=== PATIENT | female | born 1945 | race Caucasian/White ===

== ENCOUNTER 2017-11-05 09:49 | Emergency (ER) | payer MEDICARE, BC ==
[2017-11-05 10:50] VITALS: BP 145/83
--- NOTE | 2017-11-05 11:05 | UC ---
Neck Pain HPI - HPI Summary HPI Summary: Patient complains of muscle stiffness on the left side of her neck radiating down toward her mid back. Pain began after sleeping under different pillow much she just a sleeping and woke up with neck pain and the patient is continued on no neuromotor circulatory complaints distally in her upper or lower extremities has tried ibuprofen and heat without relief - History of Current Complaint Chief Complaint: UCGeneralIllness Stated Complaint: STIFF NECK MUSCLE Time Seen by Provider: 11/05/17 10:55 Hx Obtained From: Patient ?: No Onset/Duration Of Injury/Symptoms: Days - 5 Timing: Constant - O Pain Intensity: 10 Pain Scale Used: 0-10 Numeric Location: Diffuse - left side of neck and back is 1 Character: Stiff, Spasmotic Aggravating Factors: Position, Movement Alleviating Factors: Nothing Associated Signs & Symptoms: Positive: Negative - Allergies/Home Medications Allergies/Adverse Reactions: Allergies Allergy/AdvReac Type Severity Reaction Status Date / Time oxycodone [From Percodan] AdvReac Severe Hallucinati Verified 11/05/17 10:51 ons PMH/Surg Hx/FS Hx/Imm Hx Previously Healthy: No Cardiovascular History: Hypertension - D - Surgical History Surgical History: Yes Surgery Procedure, Year, and Place: cataracts 1999, hysterectomy 1969, bladder 2009 - Family History Known Family History: Positive: None - Social History Occupation: Retired Lives: With Family Alcohol Use: Rare Substance Use Type: None Smoking Status (MU): Former Smoker Review Of Systems Constitutional: Positive: Negative Skin: Positive: Negative Eyes: Positive: Negative ENT: Positive: Negative Respiratory: Positive: Negative Cardiovascular: Positive: Negative Gastrointestinal: Positive: Negative Genitourinary: Positive: Negative Musculoskeletal: Positive: Myalgia - left trapezious muscle area Neurological: Positive: Negative Psychological: Positive: Negative All Other Systems Reviewed And Are Negative: Yes Physical Exam Triage Information Reviewed: Yes Appearance: Well-Appearing, No Pain Distress, Well-Nourished Vital Signs: Initial Vital Signs Temp 97.8 F 11/05/17 10:43 Pulse 67 11/05/17 10:43 Resp 16 11/05/17 10:43 BP 145/83 11/05/17 10:43 Pulse Ox 99 11/05/17 10:43 Vital Signs Reviewed: Yes Eye Exam: Normal Eyes: Positive: Conjunctiva Clear - is a ENT Exam: Normal ENT: Positive: Normal ENT inspection, Hearing grossly normal. Negative: Trismus , Muffled voice, Hoarse voice Dental Exam: Normal Neck exam: Normal Neck: Positive: Supple, Nontender, No Lymphadenopathy Respiratory Exam: Normal Respiratory: Positive: Chest non-tender, Lungs clear, Normal breath sounds, No respiratory distress, No accessory muscle use Cardiovascular Exam: Normal Cardiovascular: Positive: RRR, No Murmur, Pulses Normal, Brisk Capillary Refill Musculoskeletal Exam: Other Musculoskeletal: Positive: Other: - left trapezious area tender to touch Neurological Exam: Normal Neurological: Positive: Alert, Muscle Tone Normal Psychological Exam: Normal Psychological: Positive: Normal Response To Family, Age Appropriate Behavior - Anorexia in subcuticular Skin Exam: Normal Neck Pain Course/Dx - Course Course Of Treatment: flexeril, nsaids, heat massage follow with pcp - Differential Dx/Diagnosis Provider Diagnoses: left trapezious strain Discharge - Sign-Out/Discharge Documenting (check all that apply): Discharge/Admit/Transfer - Discharge Plan Condition: Stable Disposition: HOME Prescriptions: Cyclobenzaprine TAB* [Flexeril 10 MG TAB*] 10 mg PO BID PRN #15 tab PRN Reason: muscle spasm Patient Education Materials: Hypertension (ED), Muscle Spasm (ED), Heat Pack Application (ED) Referrals: Sterling Emanuel MD [Primary Care Provider] - 2 Weeks - Billing Disposition and Condition Condition: STABLE Disposition: HOME
== END 2017-11-05 11:21 | disposition home or self-care (01) ==
LOC: UCCORT 09:49
DX: S46.812A Strain of other muscles, fascia and tendons at shoulder and upper arm level, left arm, initial encounter (principal); X50.0XXA Overexertion from strenuous movement or load, initial encounter; X50.1XXA Overexertion from prolonged static or awkward postures, initial encounter; Y93.84 Activity, sleeping; Y92.003 Bedroom of unspecified non-institutional (private) residence as the place of occurrence of the external cause; Z88.5 Allergy status to narcotic agent; I10 Essential (primary) hypertension; Z87.891 Personal history of nicotine dependence
CPT/HCPCS: 99202; G0463

== ENCOUNTER 2018-11-27 15:43 | Emergency (ER) | payer MEDICARE, BC ==
[2018-11-27 16:13] VITALS: BP 139/65
--- NOTE | 2018-11-27 16:30 | UC ---
Laceration HPI - HPI Summary HPI Summary: The patient is a 72 yo female that sustained a laceration to the dorsum or her right second toe about an hour [employer]AR[employer] She was cutting cabbage and dropped the knife. Td about 3 years ago - History Of Current Complaint Chief Complaint: UCLaceration Stated Complaint: RT FOOT LACERATION Time Seen by Provider: 11/27/18 16:01 Hx Obtained From: Patient Laceration Location: Toe Mechanism Of Injury: Sharp Trauma Onset/Duration: Sudden Onset Severity: Mild Pain Intensity: 0 Pain Scale Used: 0-10 Numeric Aggravating Factors: Nothing Feet (Multiple View): 1 - lac - Allergies/Home Medications Allergies/Adverse Reactions: Allergies Allergy/AdvReac Type Severity Reaction Status Date / Time oxycodone [From Percodan] AdvReac Severe Hallucinati Verified 11/27/18 16:08 ons PMH/Surg Hx/FS Hx/Imm Hx Previously Healthy: Yes Endocrine History: Dyslipidemia Cardiovascular History: Hypertension Cancer History: Other Other Cancer History: T cell Lymphoma - Surgical History Surgical History: Yes Surgery Procedure, Year, and Place: cataracts 1999, hysterectomy 1969, bladder 2009,. breast reduction, trigger finger L - Family History Known Family History: Positive: Hypertension, Non-Contributory - Social History Alcohol Use: Rare Substance Use Type: None Smoking Status (MU): Never Smoked Tobacco Review of Systems All Other Systems Reviewed And Are Negative: Yes Constitutional: Positive: Negative Skin: Positive: Negative Eyes: Positive: Negative ENT: Positive: Negative Respiratory: Positive: Negative Cardiovascular: Positive: Negative Gastrointestinal: Positive: Negative Genitourinary: Positive: Negative Motor: Positive: Negative Neurovascular: Positive: Negative Musculoskeletal: Positive: Negative Neurological: Positive: Negative Psychological: Positive: Negative Physical Exam Triage Information Reviewed: Yes Appearance: Well-Appearing, No Pain Distress, Well-Nourished Vital Signs: Initial Vital Signs Temp 98.5 F 11/27/18 16:10 Pulse 54 11/27/18 16:10 Resp 17 11/27/18 16:10 BP 139/65 11/27/18 16:10 Pulse Ox 97 11/27/18 16:10 Vital Signs Reviewed: Yes Eyes: Positive: Conjunctiva Clear ENT: Positive: Hearing grossly normal. Negative: Nasal congestion, Trismus, Muffled voice, Hoarse voice Neck: Positive: Supple Respiratory: Positive: Normal breath sounds, No respiratory distress, No accessory muscle use, Respiratory distress Cardiovascular: Positive: RRR, No Murmur Musculoskeletal: Positive: ROM Intact, No Edema Neurological: Positive: Alert Psychological Exam: Normal Skin Exam: Other - see image,,distal N/V intact/ able to extend toe against resistance Laceration Repair - Laceration Repair 1 Description: Linear : No Repair Necessary - not repaired due to infection risk Laceration Size After Repair: Length (cm) - 2.4, Width (mm) - 1, Depth (mm) - 1 Laceration Course/Dx - Diagnosis Provider Diagnosis: Laceration of second toe, right Discharge - Sign-Out/Discharge Documenting (check all that apply): Patient Departure All imaging exams completed and their final reports reviewed: No Studies - Discharge Plan Condition: Stable Disposition: HOME Prescriptions: Cephalexin CAP* [Keflex CAP*] 500 mg PO TID #9 cap Patient Education Materials: Laceration Without Closure (ED) Referrals: No Primary Care Phys,NOPCP [Primary Care Provider] - Additional Instructions: Keep current dressing on for 24-48 hours then gently clean with soap and water apply a thin film of ointment ( I like polysproin or aquaphor healing ointment) bandaid use post op shoe until healed recheck with your MD next week to make sure laceration does not look infected - Billing Disposition and Condition Condition: STABLE Disposition: Home
== END 2018-11-27 16:33 | disposition home or self-care (01) ==
LOC: UCCORT 15:43
DX: S91.114A Laceration without foreign body of right lesser toe(s) without damage to nail, initial encounter (principal); W26.0XXA Contact with knife, initial encounter; W20.8XXA Other cause of strike by thrown, projected or falling object, initial encounter; Y93.G1 Activity, food preparation and clean up; Y92.9 Unspecified place or not applicable; I10 Essential (primary) hypertension; C85.80 Other specified types of non-Hodgkin lymphoma, unspecified site
CPT/HCPCS: 99213; G0463